=== PATIENT | female | born 1980 | race Caucasian/White ===

== ENCOUNTER 2019-03-23 08:02 | Inpatient (IN) ==
[~2019-03-23 08:02] MED LIST: *HR* Nalbuphine 10 MG/ML AMPUL IVP PRN; EPHEDrine 50 MG/ML VIAL IVP PRN; Epidural Premix (fent/bupiv) 110 ML EP SCH; Famotidine 20 MG/2 ML VIAL IVP PRN; Metoclopramide 10 MG/2 ML VIAL IVP PRN; Naloxone 0.4 MG/ML INJ IVP PRN
[2019-03-23] MEDS ORDERED: Azithromycin 500 MG in 0.9 % Sodium Chloride 250 ML IVPB PRN (08:04)
[2019-03-23] MEDS ORDERED: Lidocaine 1% 20 ML MDV INFILT PRN (08:04)
[2019-03-23] MEDS ORDERED: Ondansetron 4 MG/2 ML VIAL IVP PRN ×3 (08:04→17:13)
[2019-03-23] MEDS ORDERED: Ringers Solution, Lactated 1,000 ML ONE (08:05)
[2019-03-23] MEDS ORDERED: Ringers Solution, Lactated 1,000 ML IVC SCH (08:15)
[2019-03-23] MEDS ORDERED: Oxytocin 20 units/ LR 1000 mL 20 UNIT/1,000 ML BAG IVC SCH ×2 (08:15→17:13)
[2019-03-23] MEDS ORDERED: Penicillin G Potassium 5,000,000 UNIT in 0.9 % Sodium Chloride Mini Bag 100 ML IVPB ONE (08:23)
[2019-03-23 08:44] LABS: Basophils # 0.1 K/mcL (0.0-0.2); Basophils % 0.5 %; Eosinophils # 0.1 K/mcL (0.0-0.6); Eosinophils % 0.5 %; Hematocrit 41.8 % (35.3-44.9); Hemoglobin 14.7 g/dL (11.5-15.4); Immature Granulocytes % 1.1 % (0-4); Lymphocytes # 2.1 K/mcL (0.6-4.6); Lymphocytes % 10.8 %; Mean Corpuscular HGB Conc 35.2 g/dL (31.6-35.5); Mean Corpuscular Hemoglobin 30.7 pg (28.0-33.3); Mean Corpuscular Volume 87.3 fL (83.0-100.0); Mean Platelet Volume 10.5 fL (9.4-12.4); Monocytes # 1.3 K/mcL (0.0-1.3); Monocytes % 6.7 %; Neutrophils # 15.9 K/mcL (1.6-8.9); Platelet Count 227 K/mcL (140-400); Red Blood Count 4.79 M/mcL (3.82-4.97); Red Cell Distribution Width 14.2 % (11.5-14.5); Segmented Neutrophils % 80.4 %; White Blood Count 19.8 K/mcL (4.3-11.1)
[2019-03-23 08:53] LABS: Amphetamine Screen,Urine Negative ng/mL (Cutoff=1000); Barbiturate Screen,Urine Negative ng/mL (Cutoff=200); Benzodiazepines Screen,Urine Negative ng/mL (Cutoff=200); Cannabinoid Screen,Urine Negative ng/mL (Cutoff = 50); Cocaine Screen,Urine Negative ng/mL (Cutoff= 300); Opiate Screen,Urine Negative ng/mL (Cutoff=300); Phencyclidine Screen,Urine Negative ng/mL (Cutoff=25)
[2019-03-23] MEDS ORDERED: Penicillin G Potassium 2,500,000 UNIT in 0.9 % Sodium Chloride 100 ML IVPB SCH (12:00)
[2019-03-23] MEDS ORDERED: *HR* Succinylcholine 200 MG/10 ML VIAL IVP ONE (13:56)
[2019-03-23] MEDS ORDERED: Propofol 500 MG/50 ML INFUS..BTL ONE (13:56)
[2019-03-23] MEDS ORDERED: Ketamine *HR* 500 MG/10 ML MDV ONE (14:05)
[2019-03-23] MEDS ORDERED: *HR* Oxytocin 10 UNIT/ML VIAL IM ONE (14:06)
[2019-03-23] MEDS ORDERED: *HR* FentaNYL (PF) 100 MCG/2 ML VIAL ONE (14:10)
[2019-03-23] MEDS ORDERED: *HR* Morphine Sulfate/PF 10 MG/10 ML AMPUL ONE (14:10)
[2019-03-23] MEDS ORDERED: Ondansetron 4 MG/2 ML VIAL ONE (14:25)
[2019-03-23] MEDS ORDERED: Ketorolac 30 MG/ML VIAL ONE (14:25)
[2019-03-23] MEDS ORDERED: Dexamethasone 4 MG/ML VIAL ONE (14:25)
[2019-03-23] MEDS ORDERED: Lidocaine/EPI 1:200k 2% PF 20 ML VIAL ONE (14:30)
[2019-03-23] MEDS ORDERED: *HR* OxyCODONE/APAP 5/325 TABLET PO PRN (14:39)
[2019-03-23] MEDS ORDERED: *HR* HYDROmorphone (PF) 1 MG/ML SYRINGE IVP PRN (14:39)
[2019-03-23] MEDS ORDERED: Ibuprofen 400 MG TABLET PO PRN (14:39)
[2019-03-23] MEDS ORDERED: Acetaminophen IV 1,000 MG/100 ML INFUS..BTL IVPB ONE (14:40)
[2019-03-23] MEDS ORDERED: Metoclopramide 10 MG/2 ML VIAL IVP PRN (17:13)
[2019-03-23] MEDS ORDERED: Simethicone 80 MG TAB.CHEW PO PRN (17:13)
[2019-03-23] MEDS ORDERED: Sennosides 8.6 MG TABLET PO PRN (17:13)
[2019-03-23] MEDS: metroNIDAZOLE 500 MG TABLET PO SCH ×2 (17:35→20:21)
[2019-03-24] MEDS: ceFAZolin 2,000 MG in 0.9 % Sodium Chloride 100 ML IVPB SCH ×3 (00:13→15:30)
[2019-03-24] MEDS: Ibuprofen 600 MG TABLET PO PRN ×3 (02:08→19:43)
[2019-03-24 05:44] LABS: Basophils # 0.1 K/mcL (0.0-0.2); Basophils % 0.2 %; Immature Granulocytes % 0.9 % (0-4); Lymphocytes # 2.8 K/mcL (0.6-4.6); Lymphocytes % 11.8 %; Mean Corpuscular HGB Conc 34.6 g/dL (31.6-35.5); Mean Corpuscular Hemoglobin 30.6 pg (28.0-33.3); Mean Corpuscular Volume 88.4 fL (83.0-100.0); Mean Platelet Volume 10.1 fL (9.4-12.4); Monocytes % 8.5 %; Neutrophils # 18.7 K/mcL (1.6-8.9); Platelet Count 207 K/mcL (140-400); Red Blood Count 3.96 M/mcL (3.82-4.97); Segmented Neutrophils % 78.6 %; White Blood Count 23.8 K/mcL (4.3-11.1)
[2019-03-24 05:56] LABS: Hemoglobin 12.1 g/dL (11.5-15.4)
[2019-03-24] MEDS: *HR* OxyCODONE/APAP 5/325 TABLET PO PRN ×2 (09:02→15:31)
[2019-03-24] MEDS: metroNIDAZOLE 500 MG TABLET PO SCH ×3 (09:02→20:48)
[2019-03-24] MEDS: Prenatal Vit/FA 1 EACH TABLET PO SCH (09:03)
[2019-03-25] MEDS: *HR* OxyCODONE/APAP 5/325 TABLET PO PRN ×2 (00:04→09:54)
[2019-03-25] MEDS: Ibuprofen 600 MG TABLET PO PRN (05:24)
[2019-03-25 08:31] VITALS: BP 113/62
[2019-03-25] MEDS: metroNIDAZOLE 500 MG TABLET PO SCH (09:53)
[2019-03-25] MEDS: Prenatal Vit/FA 1 EACH TABLET PO SCH (09:54)
== END 2019-03-25 11:38 | disposition home or self-care (01) | DRG 788 ==
LOC: 1NENULAB → 1NENUOBS 17:10
PROVIDERS: ADMIT Advanced Practice Midwife; ATTEND Advanced Practice Midwife